=== PATIENT | male | born 1945 | race Caucasian/White ===

== ENCOUNTER 2018-07-21 12:58 | Emergency (ER) | payer MEDICARE, BC ==
[~2018-07-21] VITALS: Ht 177.8 cm; Wt 100.0 kg
[~2018-07-21 12:58] MED LIST: LOSA100T57 PO; SIMV20TA PO; WARF-55 PO
[2018-07-21] MEDS ORDERED: LIDOcaine 1% 30ml preserv. free vial IJ ONE (14:35)
[2018-07-21] MEDS ORDERED: TETanus/Pertussis (Acell)/Diphther VAC/PF (Tdap-Adult) 0.5ml syringe IM ONE (14:35)
[2018-07-21] MEDS ORDERED: CEPH250T PO (16:21)
[2018-07-21] MEDS ORDERED: cephalexin 250mg capsule PO STA (16:53)
[2018-07-21 17:06] VITALS: BP 149/98
== END 2018-07-21 17:07 | disposition home or self-care (01) ==
LOC: ER 12:59
DX: L03.011 Cellulitis of right finger (principal); I25.10 Atherosclerotic heart disease of native coronary artery without angina pectoris; E78.00 Pure hypercholesterolemia, unspecified; I10 Essential (primary) hypertension; Z79.01 Long term (current) use of anticoagulants; Z79.899 Other long term (current) drug therapy
CPT/HCPCS: 10060; 73140; 90471; 90715; 99284; J3490